=== PATIENT | male | born 1985 | race Caucasian/White ===

== ENCOUNTER 2021-11-05 10:48 | Emergency (ER) | payer MEDICAID ==
[~2021-11-05] VITALS: Ht 177.8 cm; Wt 100.0 kg
[2021-11-05 12:24] LABS: CHLORIDE 106 mEq/L (98-107)
[2021-11-05 12:29] LABS: BASOPHILS % 0.5 % (0.0-2.0); EOSINOPHILS % 0.6 % (0.0-5.0); HEMATOCRIT. 44.7 % (42.0-52.0); HEMOGLOBIN. 15.5 g/dL (14.0-18.0); LYMPHOCYTES % 46.9 % (20.0-50.0); MEAN CORPUSCULAR HEMOGLOBIN 30.7 pg (28.0-32.0); MEAN CORPUSCULAR VOLUME 88.1 fL (80.0-94.0); MEAN PLATELET VOLUME 7.8 fl (7.4-10.4); MONOCYTES % 4.8 % (2.0-8.0); NEUTROPHILS % 47.2 % (40.0-76.0); PLATELET 276 x1000/uL (130-400); RED BLOOD CELL COUNT 5.07 mill/uL (4.7-6.1); RED CELL DISTRIBUTION WIDTH 13.6 % (11.6-14.6)
[2021-11-05] MEDS ORDERED: IBUPROFEN 600MG TABLET PO NR (13:07)
[2021-11-05 13:15] VITALS: BP 133/88
[2021-11-05 13:34] LABS: CLARITY URINE CLEAR (CLEAR); COLOR URINE YELLOW (YELLOW); KETONES URINE NEGATIVE (NEGATIVE); LEUKOCYTE ESTERASE URINE NEGATIVE (NEGATIVE); NITRITE URINE NEGATIVE (NEGATIVE); OCCULT BLOOD URINE NEGATIVE (NEGATIVE); PH URINE 5.5 (4.5-8.0); PROTEIN URINE NEGATIVE (NEGATIVE); SPECIFIC GRAVITY URINE 1.012 (1.005-1.030); UROBILINOGEN URINE 0.2 E.U./dL (0.2-1.0)
[2021-11-05] MEDS ORDERED: NAPR-681 PO (14:58)
== END 2021-11-05 15:19 | disposition home or self-care (01) ==
LOC: ER 10:48
DX: I82.461 Acute embolism and thrombosis of right calf muscular vein (principal); R55 Syncope and collapse
CPT/HCPCS: 36415; 71045; 80053; 81003; 82962; 85025; 93005; 93971; 99285

== ENCOUNTER 2024-08-12 19:30 | Emergency (ER) | payer SELFPAY ==
[~2024-08-12] VITALS: Ht 170.2 cm; Wt 98.0 kg
[~2024-08-12 19:30] MED LIST: NAPR-681 PO
[2024-08-12 19:45] VITALS: O2SAT 98
[2024-08-12] MEDS: KETOROLAC 15MG/ML VIAL IM ONE (22:15)
[2024-08-12] MEDS ORDERED: NAPR-681 MT (23:55)
[2024-08-13] MEDS: KETOROLAC 15MG/ML VIAL IM NR (00:06)
[2024-08-13 00:25] VITALS: BP 115/59; PULSE 80; RESP 12; TEMP 36.6; O2SAT 100
== END 2024-08-13 00:30 | disposition home or self-care (01) ==
LOC: ER 19:30
DX: M79.18 Myalgia, other site (principal); Z79.1 Long term (current) use of non-steroidal anti-inflammatories (NSAID)
CPT/HCPCS: 99285; 93970; 73562; 96372; J1885